=== PATIENT | female | born 1945 | race Two or more races ===

== ENCOUNTER 2016-11-11 23:55 | Emergency (ER) | payer MEDICARE, OTHER ==
--- NOTE | ~2016-11-11 | CT2 ---
[facility] A Service of [facility] RADIOLOGY TEXT RESULTS PATIENT: ELISABET CAMP LOCATION: [facility] : [birth year] UNIT #: [id number] AGE: [address]: Hany Aviles MD SEX: F ORDER DR: [id number] [place], [place] [address] [id number] E MR#: [id number] Acc #: [id number] NAME: ELISABET CAMP : 1945 SEX: F STUDY DATE/TIME: 11/12/2016 2:20 UNIT: [facility] ROOM: STUDY DESCRIPTION: CT Abd and Pelv W Cont Attending Physician: Hany Aviles M.D. Ordering Physician: Evangelist Latif M.D. Primary Care Physician: Lewis Peralta M.D. MEDICAL IMAGING REPORT This report is preliminary unless electronic signature is present EXAM CT abdomen and pelvis with contrast 11/12/2016 HISTORY 70-year-old female in the ED complaining of 3-day history of left upper abdomen pain. TECHNIQUE CT examination of the abdomen and pelvis with IV contrast. GI contrast material was not ordered, limiting evaluation of the GI tract. This CT exam was performed with one or more of the following radiation dose reduction techniques: automatic control, adjustment of mA and/or kV according to patient size, and iterative reconstruction. FINDINGS ABDOMEN FINDINGS: The appendix is surgically absent. Small bowel and colon are normal in caliber and appearance, as imaged. Liver, pancreas and spleen are normal in size and appearance. Contracted gallbladder. No bile duct dilatation. Benign-appearing cyst left mid kidney unchanged since 05/21/2014. Both kidneys otherwise negative with no evidence of urinary obstruction. Normal-caliber abdominal aorta. PELVIS FINDINGS: Bladder, uterus, ovaries and rectum are within normal limits. L5 spondylolysis with grade 1 anterolisthesis and advanced degenerative disc space and facet changes at L5-S1. IMPRESSION 1. No acute abnormality within the abdomen or pelvis. 2. Surgically absent appendix. 3. L5 spondylolysis with grade 1 anterolisthesis, advanced degenerative disc space changes and advanced bilateral facet arthropathy at L5-S1. STS. [facility] A Service of [facility] RADIOLOGY TEXT RESULTS PATIENT: ELISABET CAMP [id number] [birth year] UNIT #: [id number] AGE: [address]: Hany Aviles MD SEX: F ORDER DR: Dictated by... Memo Montano M.D. THIS IS AN ELECTRONICALLY VERIFIED REPORT Memo Montano M.D. at 11/13/2016 5:30 AM ELHAM/harry TD: 11/13/2016 01:08 JOB #: [id number] MEDICAL IMAGING REPORT COPY
[~2016-11-11 23:55] MED LIST: ACETAMINOPHEN PO; ALBUTEROL17 GM; ALBUTEROL17 GM INH; DOC-Q-LACE100 MG PO; DOCU SOFT100 M1 PO; DUONEB; FLEXERIL10 MG PO; GLUCOPHAGE500 M1 PO; IPRATR-ALBUTEROL3 ML IH; METFORMIN HCL500 M1 PO; METOPROLOL TAR25 MG; METOPROLOL TAR25 MG PO; METOPROLOL TART25 MG PO; MIRALAX17 G1 PO; MOBIC PO; MOBIC15 MG PO; NIFEDIPINE ER30 MG PO; OMEPRAZOLE40 M1 PO; PERCOCET5/325 PO; PRAVACHOL; PREDNISONE10 MG PO; PRILOSEC20 MG; PROCARDIA XL; PROCARDIA XL PO; QVAR; ROBITUSSIN DM; SYMBICORT; SYMBICORT INH; VIBRAMYCIN100 M1 PO; ZYRTEC10 M2
[2016-11-12 00:24] LABS: URINE APPEARANCE CLEAR; URINE BILIRUBIN NEG (NEG); URINE BLOOD NEG (NEG); URINE COLOR YELLOW; URINE GLUCOSE NEG (NEG); URINE KETONE TRACE (NEG); URINE LEUKOCYTE ESTERASE NEG (NEG); URINE NITRATE NEG (NEG); URINE PH 5.5 (5-8); URINE PROTEIN NEG (NEG); URINE SOURCE CLEAN CATCH; URINE UROBILINOGEN 0.2 MG/DL (NEG)
[2016-11-12 00:27] LABS: BASOPHIL# 0.1 X10e3 (0-0.3); BASOPHIL% 0.6 % (0-2.5); DIFF IND NO; EOSINOPHIL# 0.4 X10e3 (0-0.7); EOSINOPHIL% 2.7 % (0.0-7.0); HEMATOCRIT 39.6 % (35.0-45.0); HEMOGLOBIN 12.7 gm/dL (12.0-16.0); LYMPHOCYTE% 22.5 % (17.0-45.0); MEAN CELL VOLUME 77.1 FL (83-96); MEAN CORPUSCULAR HEMOGLOBIN 24.7 PG (28-34); MEAN CORPUSCULAR HGB CONC 32.1 g/dL (30-36); MEAN PLATELET VOLUME 10.9 FL (6.5-11.5); MONOCYTE# 1.1 X10e3 (0-1.0); MONOCYTE% 8.6 % (3.0-12.0); NEUTROPHIL# 8.8 X10e3 (1.5-7.1); NEUTROPHIL% 65.6 % (40-75); PLATELET COUNT 205 X10e3 (140-420); RED BLOOD COUNT 5.14 X10e (3.90-5.30); RED CELL DISTRIBUTION WIDTH 18.8 % (11.0-15.5); WHITE BLOOD COUNT 13.3 X10e3 (4.0-10.5)
[2016-11-12 00:37] LABS: CULTURE INDICATED? NO
[2016-11-12 01:21] LABS: ALBUMIN SERUM 4.2 g/dL (3.5-5.0); ALKALINE PHOSPHATASE 80 U/L (32-92); ALT (SGPT) 18 U/L (10-40); AMYLASE 15 U/L (0-46); AST (SGOT) 16 U/L (10-42); BILIRUBIN, DIRECT 0.1 mg/dL (0.0-0.2); BILIRUBIN,INDIRECT 0.3 mg/dL (0.0-0.9); BILIRUBIN,TOTAL 0.4 mg/dL (0.2-2.0); BLOOD UREA NITROGEN 10 mg/dL (9-23); BUN/CREATININE RATIO 16.66; CALCIUM SERUM 8.9 mg/dL (8.4-10.2); CARBON DIOXIDE 28 mmol/L (22-31); CHLORIDE 100 mmol/L (100-111); CREATININE SERUM 0.6 mg/dL (0.6-1.4); GLOM FILT RATE Estimated ABOVE60 mL/min (>60); GLUCOSE FASTING 102 mg/dL (70-110); LIPASE 19 U/L (22-51); POTASSIUM 3.5 mmol/L (3.5-5.1); PROTEIN TOTAL SERUM 7.8 g/dL (6.0-8.3); SODIUM 136 mmol/L (135-145)
== END 2016-11-12 03:20 | disposition home or self-care (01) ==
LOC: CED 23:55
PROVIDERS: Emergency Medicine
DX: R10.84 Generalized abdominal pain (principal); E11.9 Type 2 diabetes mellitus without complications; I10 Essential (primary) hypertension; J44.9 Chronic obstructive pulmonary disease, unspecified; Z90.49 Acquired absence of other specified parts of digestive tract
CPT/HCPCS: 36415; 74177; 80048; 80076; 81003; 82150; 82947; 83690; 85025; 99282; 99284; Q9967

== ENCOUNTER 2016-11-19 02:11 | Emergency (ER) | payer MEDICARE, OTHER ==
--- NOTE | ~2016-11-19 | CT2 ---
[facility] A Service of [facility] RADIOLOGY TEXT RESULTS PATIENT: ELISABET CAMP LOCATION: [facility] : [birth year] UNIT #: [id number] AGE: [address]: Moisés Segovia MD SEX: F ORDER DR: [id number] [facility] [address] [place], [place] [address] [id number] E MR#: [id number] Acc #: [id number] NAME: ELISABET CAMP : 1945 SEX: F STUDY DATE/TIME: 11/19/2016 2:43 UNIT: [facility] ROOM: STUDY DESCRIPTION: CT Abd and Pelv W Cont Attending Physician: Moisés Segovia M.D. Referring Physician: Samanta Self Referred Ordering Physician: Moisés Segovia M.D. Primary Care Physician: Lewis Peralta M.D. MEDICAL IMAGING REPORT This report is preliminary unless electronic signature is present EXAM Abdomen and pelvis CT with contrast, 10/22/2016. INDICATION 70-year-old female with rectal bleeding, abdominal pain today. History of appendectomy. TECHNIQUE Contrast-enhanced CT of the abdomen and pelvis was performed. This CT exam was performed with one or more of the following radiation dose reduction techniques: automatic exposure control, adjustment of mA and/or kV according to patient size, and iterative reconstruction. COMPARISONS 11/12/[address] ABDOMEN: Included lung bases are clear. No effusion or pericardial effusion. Aorta demonstrates advanced atherosclerotic change. There is ectasia of the distal thoracic and upper abdominal aorta measuring up to 2.8 cm. Spleen, adrenal glands, pancreas, and gallbladder are unremarkable. Liver demonstrates mild fatty infiltration. Right kidney unremarkable. There is a left renal cyst. CT PELVIS: Bladder unremarkable. No adnexal mass. No free fluid or drainable fluid collection in the pelvis. Moderate stool burden most characteristic of constipation. Appendix surgically absent. Inguinal canals unremarkable. No suspicious bone lesion. There is antegrade listhesis of L5 on S1 and severe degenerative disc disease at that level related to bilateral pars defects. IMPRESSION [facility] A Service of [facility] RADIOLOGY TEXT RESULTS PATIENT: ELISABET CAMP [id number] [birth year] UNIT #: [id number] AGE: [address]: Moisés Segovia MD SEX: F ORDER DR: 1. Negative contrast-enhanced CT of the abdomen and pelvis. Appendix surgically absent. 2. Incidental left renal cyst. 3. Abdominal aortic ectasia and distal thoracic aortic ectasia. 4. Chronic pars defects at L5-S1 with grade 1 antegrade listhesis at the same level, unchanged from the prior study. Dictated by... Jak Martin M.D. THIS IS AN ELECTRONICALLY VERIFIED REPORT Jak Martin M.D. at 11/19/2016 10:09 PM ROYAL/megan TD: 11/19/2016 14:46 JOB #: [id number] MEDICAL IMAGING REPORT Page 1 of 1 COPY
[2016-11-19 01:53] LABS: BASOPHIL% 0.3 % (0-2.5); EOSINOPHIL# 0.3 X10e3 (0-0.7); EOSINOPHIL% 2.4 % (0.0-7.0); HEMATOCRIT 38.5 % (35.0-45.0); HEMOGLOBIN 12.5 gm/dL (12.0-16.0); LYMPHOCYTE# 2.4 X10e3 (1.0-3.5); MEAN CELL VOLUME 78.3 FL (83-96); MEAN CORPUSCULAR HEMOGLOBIN 25.5 PG (28-34); MEAN CORPUSCULAR HGB CONC 32.6 g/dL (30-36); MEAN PLATELET VOLUME 11.6 FL (6.5-11.5); MONOCYTE% 9.5 % (3.0-12.0); NEUTROPHIL# 6.8 X10e3 (1.5-7.1); NEUTROPHIL% 64.8 % (40-75); RED BLOOD COUNT 4.92 X10e (3.90-5.30); RED CELL DISTRIBUTION WIDTH 17.3 % (11.0-15.5); WHITE BLOOD COUNT 10.5 X10e3 (4.0-10.5)
[2016-11-19 02:06] LABS: INR 0.9; PARTIAL THROMBOPLASTIN TIME 25.9 SECONDS (23.5-31.3); PROTHROMBIN TIME (PATIENT) 9.9 SECONDS (9.6-11.5)
[2016-11-19 02:11] LABS: BILIRUBIN,TOTAL 0.4 mg/dL (0.2-2.0); BUN/CREATININE RATIO 17.5; CALCIUM SERUM 9.2 mg/dL (8.4-10.2); CREATININE SERUM 0.4 mg/dL (0.6-1.4); GLOM FILT RATE Estimated 106.3 mL/min (>60); POTASSIUM 3.7 mmol/L (3.5-5.1); PROTEIN TOTAL SERUM 7.1 g/dL (6.0-8.3)
[2016-11-19 02:13] LABS: DIFF IND NO; PLATELET COUNT 150 X10e3 (140-420)
[2016-11-19 02:26] LABS: BILIRUBIN, DIRECT 0.1 mg/dL (0.0-0.2); BILIRUBIN,INDIRECT 0.3 mg/dL (0.0-0.9)
[2016-11-19] MEDS ORDERED: SYMBICORT INH (03:38)
[2016-11-19] MEDS ORDERED: GLUCOPHAGE500 M1 PO (03:39)
[2016-11-19] MEDS ORDERED: BENTYL20 MG PO (03:40)
[2016-11-19] MEDS ORDERED: LISINOPRIL10 MG PO (03:41)
[2016-11-19] MEDS ORDERED: VOLTAREN75 MG PO (03:41)
[2016-11-19] MEDS ORDERED: OMEPRAZOLE40 M1 PO (03:42)
[2016-11-19] MEDS ORDERED: TIZANIDINE HCL2 MG PO (03:43)
[2016-11-19] MEDS ORDERED: PROAIR RESPICL90 MCG INH (03:45)
[2016-11-19] MEDS ORDERED: FERROUS GLUCON324 MG PO (03:46)
[2016-11-19] MEDS ORDERED: NIFEDIPINE ER60 M1 PO (03:49)
[2016-11-19] MEDS ORDERED: ALENDRONATE SOD70 MG PO (03:51)
[2016-11-19 04:23] LABS: URINE SOURCE CLEAN CATCH
[2016-11-19 05:21] LABS: URINE COLOR YELLOW
[2016-11-19 05:22] LABS: CULTURE INDICATED? NO; URINE APPEARANCE CLEAR; URINE BILIRUBIN NEG (NEG); URINE BLOOD NEG (NEG); URINE GLUCOSE NEG (NEG); URINE KETONE NEG (NEG); URINE LEUKOCYTE ESTERASE NEG (NEG); URINE NITRATE NEG (NEG); URINE PROTEIN NEG (NEG); URINE SPECIFIC GRAVITY 1.036 (1.003-1.035); URINE UROBILINOGEN 0.2 MG/DL (NEG)
== END 2016-11-19 05:45 | disposition home or self-care (01) ==
LOC: CED 02:11
PROVIDERS: Emergency Medicine
DX: R10.9 Unspecified abdominal pain (principal); I10 Essential (primary) hypertension; E11.9 Type 2 diabetes mellitus without complications; Z79.84 Long term (current) use of oral hypoglycemic drugs; Z79.899 Other long term (current) drug therapy
CPT/HCPCS: 36415; 74177; 80048; 80076; 81003; 83690; 85025; 85610; 85730; 87045; 87177; 87209; 87427; 87899; 99284; Q9967